=== PATIENT | male | born 1975 | race Caucasian/White ===

== ENCOUNTER 2023-10-22 00:56 | Outpatient (CLI) | payer BC, SELFPAY ==
[2023-10-22 09:46] LABS: Hemoglobin A1C 6.1 % (<5.7)
[2023-10-22 10:15] LABS: CREATININE 1.1 mg/dL (0.70-1.30); Calculated LDL 127 mg/dL (<100); Cholesterol 220 mg/dL (<200); Estimated GFR 82.29 (mL/min/1.73m2); HDL Cholesterol 49 mg/dL (40-60); Potassium 3.8 mmol/L (3.5-5.1); Triglyceride 220 mg/dL (<150)
== END 2023-10-22 00:57 | disposition home or self-care (01) ==
LOC: LBO 00:56
PROVIDERS: PCP Nurse Practitioner Family; Visit Provider Nurse Practitioner Family
DX: I10 Essential (primary) hypertension (principal); Z13.1 Encounter for screening for diabetes mellitus; Z13.220 Encounter for screening for lipoid disorders
CPT/HCPCS: 36415; 80061; 82565; 83036; 84132

== ENCOUNTER 2023-11-25 06:09 | Day surgery (SDC) | payer BC, SELFPAY ==
[2023-11-25 06:24] VITALS: BP 134/98; PULSE 106; RESP 16; TEMP 36.1; O2SAT 98
[2023-11-25] MEDS: Lactated Ringers 1,000 ML 80 ML IV (06:37)
[2023-11-25 06:50] VITALS: BMI 40.5
--- NOTE | 2023-11-25 06:50 | W.ANESPRE ---
General Info Date of Service Date Performed: 11/25/23 Height: 5 ft 10 in Weight: 128.1 kg Body Mass Index (BMI): 40.5 Surgical Procedure: Operation Date: 11/25/23 07:35 Proposed Procedure Side Surgeon kee Daly MD Meds Allergies and Home Medications Allergies Allergy/AdvReac Type Severity Reaction Status Date / Time lisinopril AdvReac Intermediate Verified 11/25/23 06:22 Home Medication Medication Instructions Recorded sildenafil 50 mg tablet 50 mg PO DAILY PRN 10/12/23 cetirizine 10 mg tablet (Zyrtec) 10 mg PO DAILY #90 tabs 10/15/23 losartan 100 1 tab PO DAILY #90 tabs 10/15/23 mg-hydrochlorothiazide 25 mg tablet Current Visit Medications: Current Medications Generic Name Dose Route Start Last Admin Trade Name Freq PRN Reason Stop Dose Admin Ringer's Solution 1,000 mls @ 80 mls/hr 11/25/23 06:00 11/25/23 06:37 IV 12/24/23 23:59 80 mls/hr INFUSION COLLEEN Administration IV Miscellaneous Supplies 1 each 11/25/23 06:00 Iv Access IV 12/24/23 23:59 DIRECTED COLLEEN Sodium Chloride 0 ml 11/25/23 06:00 Normal Saline Flush 10 Ml Syr IV 12/24/23 23:59 PRN PRN Sodium Chloride 0 ml 11/25/23 06:00 Normal Saline 10 Ml Vial IJ 12/24/23 23:59 DIRECTED PRN Sterile Water 0 ml 11/25/23 06:00 Water,Injection,Sterile 10 Ml Vial IJ 12/24/23 23:59 DIRECTED PRN PFSH Active Problems Active Problems: Problem Status Onset Code Left hip pain M25.552 Prepatellar bursitis of right knee M70.41 Prediabetes R73.03 Lumbar radiculopathy M54.16 Eustachian tube disorder H69.90 Hyperlipidemia E78.5 Melanocytic nevus of upper extremity D22.60 Herpangina B08.5 Chronic cough R05.3 Obesity E66.9 Erectile dysfunction N52.9 Hypertension I10 Tobacco Smoking/Tobacco Use Status: Former Tobacco Use Smokeless tobacco user: chewing tobacco Passive smoking exposure: Yes Second hand exposure: Yes Alcohol Alcohol Intake: current Alcohol intake frequency: 3 or more drinks per day Alcohol type: beer and hard liquor Substance Use Substance use: Never Substance use type: does not use Vital Signs and Lab Results Vital Signs Most Recent Vital Signs in EMR: Most Recent Vital Signs Temp Pulse Resp BP Pulse Ox 36.1 C L 106 H 16 134/98 H 98 11/25/23 06:24 11/25/23 06:24 11/25/23 06:24 11/25/23 06:24 11/25/23 06:24 Lab Results Blood Type / Crossmatch: No Data to Display Complete Blood Count: No Data to Display Complete Metabolic Panel: No Data to Display Liver Function Panel: No Data to Display Coagulation Panel: No Data to Display Cardiac Panel: No Data to Display Arterial Blood Gas: No Data to Display Venous Blood Gas: No Data to Display Pancreas Panel: No Data to Display Thyroid Panel: No Data to Display Infectious Disease: No Data to Display Blood Cultures: No Data to Display Toxicology Panel: No Data to Display Anesthesia Assessment and Plan Anesthesia History Personal History: No History of Anesthesia Complications Family History: No Family History of Anesthesia Complications Exercise Tolerance Exercise Tolerance: Metabolic Equivalents>4 Pertinent Negatives Pertinent Negatives: No Symptoms of GERD, No Major Cardiovascular Symptoms or Complaints, No Major Pulmonary Symptoms or Complaints and No History of CVA/TIA Cardiac & Pulmonary Exam Cardiac Exam: Normal S1/S2 Heart Sounds Pulmonary Exam: Clear Bilateral Breath Sounds Implantable Cardiac Device Does patient have a Pacemaker or an ICD?: No Airway Exam Known Difficult Airway: No Mallampati Class: 3 Mouth Opening: Normal (> 3cm) Thyromental Distance: Greater than 3 cm Neck Range of Motion: Full ROM Neck Circumference: Normal Teeth Condition: Normal Dentition ASA Classification ASA Score: ASA 3 Emergency Case?: No NPO Status NPO Status: NPO Clears >2 hours, Solids >8 hours Anesthesia Plan Resuscitation Status: Full Code Anesthesia Technique: General Anesthesia Airway Planned: Natural Airway Monitors Used: Standard Monitors
--- NOTE | 2023-11-25 07:45 | BOWEL_PTH ---
PATIENT: Alden Ryan LOC: [facility] U#:[id number] AGE/SX: 47/M ROOM: RE11/25/[address]: Adriel Daly : 1975 BED: DIS: 11/25/2023 SPEC #: [id number] RECD: 11/25/23 12:43 STATUS: ESEQUIEL RELevy #: [id number] CARYN: 11/25/23 07:[address]: Adriel Daly DEPT: Surgical Specimen RECD BY: Renee Ponce ENTERED: 11/25/23 12:46 SP TYPE: Bowel OTHR DR: Zuhair Damon, [facility] D[facility] Tissues: 1 - BIOPSY BOWEL 2 - BIOPSY BOWEL 3 - BIOPSY BOWEL 4 - BIOPSY BOWEL Procedures: GROSS AND MICRO LEVEL 4 Comments: [id number]
[2023-11-25 07:57] VITALS: BP 126/85; PULSE 92; RESP 18; TEMP 36.5; O2SAT 96
--- NOTE | 2023-11-25 08:03 | W.COLOREPORT ---
Date of service: 11/25/23 Time of Service: 07:58 Colonoscopy Report Procedure Description: PROCEDURES PERFORMED: 1. Colonoscopy with hot snare polypectomy x2 2. Cold forceps polypectomy x3 3. Fulguration/destruction/ablation of colon polyps x 1 PREOPERATIVE DIAGNOSIS: Screening colonoscopy POSTOPERATIVE DIAGNOSIS: Colon polyps, mild diverticular changes SURGEON: Nury Daly MD INDICATION for procedure: The patient is a 47-year-old man due for screening. He has never had a colonoscopy before. He has no symptoms. There is no family history of colon cancer. FINDINGS: Terminal ileum was normal. In the proximal transverse colon to, 2-3 mm sessile polyps were removed next to each other with cold forceps technique. In the descending colon a 3-5 mm sessile polyp was removed with hot snare technique. In the sigmoid colon another 3-5 mm sessile polyp was removed with hot snare technique. Further along in the sigmoid colon what looked like the beginning of a polyp was ablated with the tip of the hot snare. In the rectum a hyperplastic?appearing rectal polyp was seen and removed with cold forcep technique to confirm benign histology. Mild/minimal diverticular changes present in the colon randomly. No associated diverticulitis. No hemorrhoidal disease. SURVEILLANCE interval/FOLLOW-UP: 3 years SPECIMENS: yes EBL: Minimal COMPLICATIONS: None QUALITY of prep: Excellent Procedure in detail: The patient gave written consent and was in agreement with the indications, the potential risks as well as the benefits of the procedure. They taken to the endoscopy suite and laid in the left lateral decubitus position. A timeout was performed and anesthesia was administered which was tolerated well. I started the procedure. Digital rectal and visual examination was performed and grossly within normal limits. A well-lubricated flexible colonoscope was then introduced and passed without any notable difficulty all the way to the cecum identified by the ileocecal valve and the appendiceal orifice. The terminal ileum was intubated and looked normal. The scope was then slowly withdrawn with the above-noted findings. The patient tolerated the procedure well and was taken to the PACU in hemodynamically stable condition.
--- NOTE | 2023-11-25 08:06 | W.PM.DSUDISC ---
Date of service: 11/25/23 Time of Service: 08:06 Discharge Plan Disposition Patient Disposition: Home Condition: Good Discharge Details Attending Provider: Adriel Daly Primary Care Provider: Zuhair Damon Home Meds and New Rx's Prescriptions: No Action cetirizine [Zyrtec] 10 mg tablet 10 mg PO DAILY Qty: 90 3RF losartan-hydrochlorothiazide 100-25 mg tablet 1 tab PO DAILY Qty: 90 3RF sildenafil 50 mg tablet 50 mg PO DAILY PRN Rx Instructions: administer 30 minutes to 4 hours before activity Discharge Instructions Additional Instructions: FINDINGS: 5 polyps were found and removed today. This is why we do the colonoscopy. They are nothing to worry about. You need to do another colonoscopy in 3 years. Some minimal diverticular changes were seen today. This is a very common, benign condition and nothing needs to be done about it. Stand Alone Forms: Colonoscopy Post Instructions Activity:: Activity as Tolerated Diet:: As Tolerated
--- NOTE | 2023-11-25 08:16 | W.ANESPOSTOP ---
Postoperative Evaluation Date, Time and Location Date Performed: 11/25/23 Time Performed: 08:02 Patient Location: Day Surgery Unit Vital Signs Most Recent Imported Vital Signs: Most Recent Vital Signs Temp Pulse Resp BP Pulse Ox 36.5 C 92 H 18 126/85 96 11/25/23 07:57 11/25/23 07:57 11/25/23 07:57 11/25/23 07:57 11/25/23 07:57 Pain Score Most Recent Pain Score: Most Recent Pain Score Pain Level 0 11/25/23 07:57 Assessment Mental Status: Awake (Alert & Oriented to Patient Baseline) Airway and Respiratory Function: Patent airway with normal (patient baseline) respiratory exam Cardiovascular Function: Hemodynamically Stable Hydration Status: Adequately Hydrated Nausea & Vomiting: No Nausea or Vomiting Pain: Pt. Denies Any Pain Peripheral Nerve Block: Patient did not receive a nerve block
[2023-11-25 08:28] VITALS: BP 132/86; PULSE 88; RESP 18; TEMP 36.2; O2SAT 97
== END 2023-11-25 08:34 | disposition home or self-care (01) ==
PROVIDERS: PCP Nurse Practitioner Family; Visit Provider Student in an Organized Health Care Education/Training Program
PROC: 0DJD8ZZ Inspection of Lower Intestinal Tract, Via Natural or Artificial Opening Endoscopic (ICD-10-PCS; CPT 45378; principal; 2023-11-25 07:30)
DX: Z12.11 Encounter for screening for malignant neoplasm of colon (principal); D12.3 Benign neoplasm of transverse colon; K57.30 Diverticulosis of large intestine without perforation or abscess without bleeding; E78.5 Hyperlipidemia, unspecified; R73.03 Prediabetes; K62.1 Rectal polyp; D12.4 Benign neoplasm of descending colon; D12.5 Benign neoplasm of sigmoid colon
CPT/HCPCS: 45380; 45385; 45388; 00123; 88305; J2704

== ENCOUNTER 2024-10-24 13:53 | Outpatient (CLI) | payer BC, SELFPAY ==
[2024-10-24 09:48] LABS: Anion Gap 8.7 mmol/L (3-11); BUN 18 mg/dL (7-18); CO2 28.3 mmol/L (21.0-32.0); CREATININE 1.1 mg/dL (0.70-1.30); Calcium 9.2 mg/dL (8.5-10.1); Calculated LDL 85 mg/dL (<100); Chloride 104 mmol/L (98-107); Cholesterol 166 mg/dL (<200); Estimated GFR 81.78 (mL/min/1.73m2); Glucose 159 mg/dL (74-106); HDL Cholesterol 50 mg/dL (40-60); Sodium 141 mmol/L (136-145); Triglyceride 158 mg/dL (<150)
[2024-10-24 09:59] LABS: Hemoglobin A1C 6.4 % (<5.7)
== END 2024-10-24 13:54 | disposition home or self-care (01) ==
LOC: LBO 13:54
PROVIDERS: PCP Nurse Practitioner Family; Visit Provider Nurse Practitioner Family
DX: Z13.1 Encounter for screening for diabetes mellitus (principal); Z13.220 Encounter for screening for lipoid disorders; I10 Essential (primary) hypertension
CPT/HCPCS: 36415; 80048; 80061; 83036

== ENCOUNTER 2024-10-28 01:39 | Outpatient (CLI) | payer BC, SELFPAY ==
[2024-10-28] MEDS: Inhaler, Assist Device 1 EACH MC (14:20)
[2024-10-28] MEDS: Levalbuterol HFA 15 GM INH 4 PUFF IH (14:26)
--- NOTE | 2024-11-07 09:51 | W.PFT ---
Date of service: 10/28/24 Time of Service: 13:01 Pulmonary Function Test Result Indications: Chronic cough Interpretation Spirometry: No airflow limitation. No bronchodilator response. Lung Volumes: Normal lung volumes Diffusion Capacity: Normal diffusion Airway Pressure: Normal airways resistance Impression Normal pulmonary function testing Clinical Correlation therefore is recommended.
== END 2024-10-28 01:40 | disposition home or self-care (01) ==
LOC: RT 01:40
PROVIDERS: PCP Nurse Practitioner Family; Visit Provider Student in an Organized Health Care Education/Training Program
DX: R05.3 Chronic cough (principal)
CPT/HCPCS: 94060; 94726; 94729

== ENCOUNTER 2025-07-05 09:04 | Outpatient (CLI) | payer BC, SELFPAY ==
[2025-07-05 14:36] LABS: Hemoglobin A1C 6.1 % (<5.7)
[2025-07-05 15:03] LABS: Vitamin B12 640 pg/mL (193-986)
== END 2025-07-05 09:05 | disposition home or self-care (01) ==
LOC: LOS 09:04
PROVIDERS: PCP Nurse Practitioner Family; Referring Provider Nurse Practitioner Family; Visit Provider Nurse Practitioner Family
DX: G62.9 Polyneuropathy, unspecified (principal); Z13.1 Encounter for screening for diabetes mellitus
CPT/HCPCS: 36415; 82607; 83036